=== PATIENT | male | born 1965 | race Caucasian/White ===

== ENCOUNTER 2021-11-29 13:10 | Emergency (ER) | payer OTHER, SELFPAY ==
[2021-11-29 13:11] VITALS: BP 132/89; PULSE 103; RESP 16; TEMP 36.8; O2SAT 96; BMI 39.4
--- NOTE | 2021-11-29 13:32 | CT_ITS ---
INDICATION: New onset seizure EXAMINATION: CT BRAIN - CT Head or Brain W/O Contrast Injection TECHNIQUE: Multiple axial images were obtained of the head without intravenous contrast. A radiation dose optimization technique was used for this scan. IV Contrast dosage and agent: None. COMPARISON: None FINDINGS: No acute intra or extra-axial hemorrhage. No significant midline shift. Ventricles are normal size and configuration for patient''s age. No acute ischemia, significant cerebral edema, or parenchymal masses. The orbits and globes are intact. No acute calvarial fracture. Soft tissues are unremarkable. Mild mucosal thickening in the maxillary sinuses. Mastoid air cells are clear. CT/Brain/Head without Contrast IMPRESSION: No acute intracranial findings. Electronically Signed: Levi Watts, at 14:40 EDT ,
--- NOTE | 2021-11-29 13:33 | EKG12_ITS ---
Test Reason : SYNCOPE Blood Pressure : / mmHG Vent. Rate : 097 BPM Atrial Rate : 097 BPM P-R Int : 182 ms QRS Dur : 092 ms QT Int : 352 ms P-R-T Axes : -03 -13 001 degrees QTc Int : 447 ms Normal sinus rhythm Nonspecific ST and T wave abnormality Abnormal ECG Confirmed by KODY GUZMAN, SALOME ([id number]), commissioning editor KEO ARANA ([id number]) on 11/30/2021 11:04:54 AM Referred By: SUGAR Confirmed By:SALOME GATES MD
[2021-11-29 13:58] VITALS: BP 128/96; PULSE 96; RESP 18; O2SAT 98
--- NOTE | 2021-11-29 13:58 | EDS_ITS ---
HPI History of Present Illness Chief Complaint: Syncope Detail of Chief Complaint: Patient had seizure activity per the straight truck driver Informant: patient and friend Onset/Context/Timing Onset: Today and Hours Context: Sudden Onset Timing: Intermittent Quality: Patient became stiff with motor activity upper and lower extremity with inc Current Severity: Gone Maximum Severity: Severe Worsened by: Unknown Relieved by: Not applicable Associated Symptoms Associated Symptoms: Incontinence and postictal Narrative Narrative: Patient is a 56-year-old male who is on business trip from [facility]. He was the passenger of the vehicle. The straight truck driver noted that he became stiff with shaking activity of the upper and lower extremity with incontinence of urine. He states after the shaking stopped he looked straight ahead. He was disoriented for minutes. Patient denies headache. Patient denies visual, ocular auditory symptoms. Patient presently denies trouble with speech or swallowing. Patient denies chest pain shortness of breath or difficulty breathing. Patient denies black or maroon-colored stool. Patient denies paresthesia, anesthesia medics. He denies history of seizure disorder as an adult or child. He denies use of illicit drugs. Prior similar symptoms: No Recent Illness/Hospitalization: No PFSH PFSH Medical History no medical history no medical history Home Medications levetiracetam [Keppra] 500 mg PO BID #60 tab 11/29/21 [Rx Last Taken Unknown] Allergy/AdvReac Type Severity Reaction Status Date / Time No Known Allergies Allergy Verified 11/29/21 13:11 Surgical History no surgical history Social History (Updated 11/29/21 @ 14:[address] Crow Freed MD) household members: other Smoking Status: Current some day smoker tobacco type: cigars substance use type: does not use ROS ROS ED Constitutional Constitutional ED: Denies chills, fever(s), subjective, sweats or weight loss Eyes Eyes: Denies blurry vision, change in vision or diplopia ENT ENT ED: Denies ear pain, rhinorrhea or sore throat Cardiovascular Cardiovascular: Denies chest pain, orthopnea, palpitations or paroxysmal nocturnal dyspnea Respiratory/Chest Respiratory/Chest: Denies cough, dyspnea, dyspnea on exertion, orthopnea or paroxysmal nocturnal dyspnea Gastrointestinal Gastrointestinal: Denies abdominal pain, constipation, diarrhea, nausea or vomiting Genitourinary Genitourinary ED: Denies dysuria, hematuria or urinary frequency Musculoskeletal Musculoskeletal: Denies arthralgias, back pain, myalgias or neck pain Integumentary Denies Abrasions or rash Neurologic Neurologic: Denies headache(s), paresthesias or weakness Psychiatric Psychiatric: Denies anxiety or depression Endocrine Endocrinology: Denies polydipsia, polyphagia or polyuria Hematologic/Lymphatic Hematologic/Lymphatic: Denies anemia, easy bleeding or easy bruising EXAM Physical Exam Const Vital Signs: 11/29/21 13:11 11/29/21 13:55 11/29/21 13:58 Temperature 98.2 F Temperature Source Temporal Pulse Rate 103 H 96 Respiratory Rate 16 18 Respiratory Effort Normal Non-Labored Respiratory Pattern Normal Blood Pressure 132/89 H 128/96 H Blood Pressure Mean 103 106 Pulse Ox 96 98 Oxygen Delivery Method Room Air Room Air Positive well nourished, well developed and obese General Appearance ED: well developed and NAD; Negative for cyanotic, diaphoretic or pallor Nutritional Appearance: obese HEENT Reports TM's clear and moist mucous membranes HEENT Narrative: Nares patent. Posterior pharyngeal erythema exudate. Uvula midline. Negative for trauma or tenderness Tympanic Membrane ED: Yes TM's clear Eyes PERRL and EOMs intact bilaterally Eyes Narrative: There is no APD. There is no papilledema. Cup-to-disc ratio is normal. General Eye ED: Negative for pale conjunctiva or scleral icterus Neck no lymphadenopathy, supple and no JVD Chest Wall inspection of chest normal and palpation of chest normal Resp normal respiratory effort and clear to auscultation bilaterally Effort and Inspection: Negative for pain with movement Cardio regular rate, regular rhythm, S1 normal heart sound, S2 normal heart sound and no murmurs GI normal to inspection, nondistended, normoactive bowel sounds, non-tender and non-distended Palpation: soft Back/Spine no CVA tenderness Cervical Spine: Negative for cervical spine tenderness Thoracic Spine / Upper Back: Negative for paraspinal muscle tenderness Extremity normal to inspection General Extremety ED: Negative for edema or tenderness General Extremity: Negative for edema Neuro oriented x3, CN's II-XII intact bilaterally and no sensory deficits noted Neuro Narrative: DTRs upper and lower extremity are 1+ with no clonus or Babinski sign. Sensorium / Orientation: alert Motor Exam: strength 5/5 throughout Psych mental status grossly normal Skin no rashes or lesions noted and no wounds General Skin Exam: elasticity normal; Negative for jaundice or pallor MDM MDM MDM Narrative Medical decision making narrative: Based on straight truck driver's description patient had a generalized tonic-clonic seizure. Will obtain CT of the head to rule out in tracranial process. Blood work was obtained to rule out metabolic cause. Lab Data Attestation: I reviewed the patient's lab results. Lab results narrative: Laboratory work-up is unremarkable. Labs: Laboratory Results - last 24 hr 11/29/21 11/29/21 11/29/21 13:50 13:50 13:50 WBC 5.1 RBC 5.22 Hgb 15.6 Hct 45.6 MCV 87.4 MCH 29.9 MCHC 34.2 RDW Std Deviation 43.2 RDW Coeff of [place] 13.4 Plt Count 212 MPV 11.4 Immature Gran % (Auto) 0.200 Neut % (Auto) 63.7 Lymph % (Auto) 15.0 L [place] % (Auto) 20.3 H Eos % (Auto) 0.2 Baso % (Auto) 0.6 Absolute Neuts (auto) 3.3 Absolute Lymphs (auto) 0.77 L Nucleated RBC % 0 Sodium 135 L Potassium 3.7 Chloride 102 Carbon Dioxide 27.0 Anion Gap 6 BUN 15 Creatinine 1.08 Estim Creat Clear Calc 78.86 Est GFR (MDRD) Af Amer 91 Est GFR (MDRD) Non-Af 75 BUN/Creatinine Ratio 13.9 Glucose 90 Lactic Acid 0.7 Calcium 8.8 Total Bilirubin 0.50 AST 15 ALT 30 Alkaline Phosphatase 70 Total Protein 7.5 Albumin 4.1 Globulin 3.4 Albumin/Globulin Ratio 1.2 Radiography Diagnostic Testing: Clinical Impression(s) from Imaging Studies Brain CT 11/29/21 13:32 IMPRESSION: No acute intracranial findings. Electronically Signed: Levi Mac, at 14:40 EDT , CT of the head without contrast was reviewed by me. There is no acute intracranial process abnormality. The bone windows indicate no fracture. There is no evidence of any sinus disease either. Awaiting formal read by radiologist EKG Initial EKG: Attestation: I personally reviewed and interpreted this EKG as follows: Interpretation: Sinus Rhythm (Sinus rhythm with a rate of 69. EKG is normal. IA interval is 154 ms. QS duration 82 ms. QT duration 418 ms. [place] is normal. ) Discharge Plan Triage Chief Complaint: Syncope ED Provider: Crow Freed Dx/Rx/DC Orders Clinical Impression: New onset seizure without head trauma Instructions: ED Seizure New Onset Unknown ... Prescriptions: New levetiracetam [Keppra] 500 mg tablet 500 mg PO BID Qty: 60 RF: 0 Primary Care Provider: Care Physician,No Primary Referrals: Care Physician,No Primary [Primary Care Provider] - Doctor,Your [STAFF PHYSICIAN] - 1 Week Activity Restrictions/Additional Instructions: 1. No driving or use of heavy equipment until cleared by neurologist 2. You should not go up the ladders or any heights until cleared by neurologist 3. You should not go in a swimming pool or [place] until cleared by neurologist Disposition Disposition: Home, Self Care
[2021-11-29 14:13] LABS: Absolute Lymphocyte Count 0.77 X10^3/uL (0.83-4.51); Absolute Neutrophil Count 3.3 X10^3/uL (2.0-7.7); Basophil# 0.03 X10^3/uL; Basophil% 0.6 % (0-1); Eosinophil# 0.01 X10^3/uL; Eosinophils% 0.2 % (0-5); Hematocrit 45.6 % (40-54); Hemoglobin 15.6 g/dL (13.0-16.5); Lymphocyte # 0.77 X10^3/ul (0.83-4.51); Mean Corp Hgb Conc 34.2 g/dL (32-36); Mean Corpuscular Hgb 29.9 pg (27.0-32.0); Mean Corpuscular Volume 87.4 fL (80-94); Mean Platelet Vol. 11.4 fl (6.2-12.0); Monocyte# 1.04 X10^3/uL; Monocyte% 20.3 % (0-10); NRBC Flagged by Analyzer 0 % (0-5); Neutrophil # 3.27 X10^3/uL (2.7-7.7); Neutrophil % 63.7 % (47-70); Platelet Count 212 K/mm3 (150-450); RBC Distribution Width CV 13.4 % (11.6-14.6); RBC Distribution Width SD 43.2 fl (35.1-43.9); Red Blood Count 5.22 M/mm3 (4.6-6.2); White Blood Count 5.1 K/mm3 (4.4-11.0)
[2021-11-29 14:24] LABS: ALB/GLOB Ratio 1.2 RATIO (0.9-2.4); AST(SGOT) 15 U/L (15-37); Alanine Aminotransfer ALT/SGPT 30 U/L (16-61); Albumin, Serum 4.1 g/dL (3.2-5.0); Alkaline Phosphatase 70 U/L (45-117); Anion Gap 6 (5-15); BUN 15 mg/dL (7-18); BUN/Creat Ratio 13.9 RATIO (10-20); Calcium,Total 8.8 mg/dL (8.5-10.1); Chloride 102 mmol/L (98-107); Creatinine, Serum 1.08 mg/dL (0.70-1.30); EST Glomerular Filtration Rate 75 mL/min (>60); Est Glom Filt Rate - Afr Amer 91 mL/min (>60); Estimated Creatinine Clearance 78.86 ml/min; Globulin 3.4 g/dL (2.2-4.2); Glucose 90 mg/dL (74-106); Potassium 3.7 mmol/L (3.5-5.1); Protein, Total 7.5 g/dL (6.4-8.2); Sodium Level 135 mmol/L (136-145)
[2021-11-29 14:35] LABS: Lactic Acid 0.7 mmol/L (0.4-1.9)
[2021-11-29] MEDS: levETIRAcetam IV 1,000 MG/100 ML BAG 400 MG IV (15:51)
[2021-11-29 15:52] VITALS: BP 121/88; PULSE 87; RESP 16
== END 2021-11-29 16:20 | disposition home or self-care (01) ==
PROVIDERS: Emergency Provider Emergency Medicine; Visit Provider Emergency Medicine
DX: R56.9 Unspecified convulsions (principal); R41.0 Disorientation, unspecified; F17.290 Nicotine dependence, other tobacco product, uncomplicated
CPT/HCPCS: 70450; 80053; 83605; 85025; 93005; 96365; 99285; J7050; A4216